=== PATIENT | female | born 1945 | race Asian ===

== ENCOUNTER 2017-05-28 15:00 | Outpatient (CLI) | payer MEDICARE, OTHER ==
[2017-05-28] MEDS ORDERED: ETHYL CHLORIDE SPRAY 1 EA BOTTLE TP ONE (15:30)
== END 2017-05-28 23:59 | disposition home or self-care (01) ==
DX: L82.1 Other seborrheic keratosis (principal); D22.72 Melanocytic nevi of left lower limb, including hip; R25.2 Cramp and spasm; Z83.3 Family history of diabetes mellitus
CPT/HCPCS: 11401; 88305 ×2; A6209 ×2; A6402; J3490

== ENCOUNTER 2017-06-18 15:40 | Outpatient (CLI) | payer MEDICARE, OTHER | END 2017-06-18 23:59 | disposition home or self-care (01) | LOC: WOU 15:40 | PROVIDERS: ATTEND Surgery | DX: Z48.817 Encounter for surgical aftercare following surgery on the skin and subcutaneous tissue (principal); D22.72 Melanocytic nevi of left lower limb, including hip; D22.71 Melanocytic nevi of right lower limb, including hip; R25.2 Cramp and spasm | CPT/HCPCS: A6402; G0463 ==

== ENCOUNTER 2017-06-25 15:50 | Outpatient (CLI) | payer MEDICARE, OTHER ==
[2017-06-25] MEDS ORDERED: ETHYL CHLORIDE SPRAY 1 EA BOTTLE TP ONE (16:00)
== END 2017-06-25 23:59 | disposition home or self-care (01) ==
LOC: WOU 15:50
PROVIDERS: ATTEND Surgery
PROC: 0HBHXZZ Excision of Right Upper Leg Skin, External Approach (ICD-10-PCS; principal; 2017-06-25)
DX: D22.71 Melanocytic nevi of right lower limb, including hip (principal); L57.0 Actinic keratosis
CPT/HCPCS: 88305-TC; A6209; A6402; J3490

== ENCOUNTER 2017-07-16 13:40 | Outpatient (CLI) | payer MEDICARE, OTHER | END 2017-07-16 23:59 | disposition home or self-care (01) | LOC: WOU 13:40 | PROVIDERS: ATTEND Surgery | DX: Z48.02 Encounter for removal of sutures (principal); R25.2 Cramp and spasm; Z87.891 Personal history of nicotine dependence; Z88.2 Allergy status to sulfonamides | CPT/HCPCS: G0463 ==

== ENCOUNTER 2018-01-28 15:12 | Outpatient (CLI) | payer MEDICARE, OTHER | END 2018-01-28 23:59 | disposition home or self-care (01) | LOC: RAD 15:12 | PROVIDERS: ATTEND Surgery | DX: R05 Cough (principal) | CPT/HCPCS: 71046 ==

== ENCOUNTER 2018-05-14 10:28 | Emergency (ER) | payer OTHER ==
[~2018-05-14] VITALS: Ht 157.5 cm; Wt 49.9 kg
[2018-05-14 10:44] VITALS: BP 147/95
[2018-05-14 11:17] LABS: CALCIUM, SERUM 8.9 mg/dL (8.5-10.1); CARBON DIOXIDE 31 mmol/L (21-32); CHLORIDE 105 mmol/L (98-107); CREATININE 0.9 mg/dL (0.6-1.3); GLUCOSE 116 mg/dL (74-106); POTASSIUM 4.3 mmol/L (3.5-5.1); SODIUM SERUM 139 mmol/L (136-145); UREA NITROGEN, BLOOD 13 mg/dL (7-18)
[2018-05-14 11:24] LABS: ALANINE AMINOTRANSFERASE 37 U/L (12-78); ALBUMIN 3.8 g/dL (3.4-5.0); ALKALINE PHOSPHATASE 76 U/L (46-116); ASPARTATE AMINOTRANSFERASE 28 U/L (15-37); BILIRUBIN,TOTAL 0.5 mg/dL (0.2-1.0); TOTAL PROTEIN, SERUM 7.2 g/dL (6.4-8.2)
== END 2018-05-14 11:06 | disposition home or self-care (01) ==
LOC: ER 10:29
DX: S61.236A Puncture wound without foreign body of right little finger without damage to nail, initial encounter (principal); Z88.2 Allergy status to sulfonamides; W46.0XXA Contact with hypodermic needle, initial encounter; Y93.89 Activity, other specified; Y92.89 Other specified places as the place of occurrence of the external cause; Y99.0 Civilian activity done for income or pay
CPT/HCPCS: 36415; 80053; 86706; 87340; 99284; A4606; Z7610

== ENCOUNTER 2019-01-23 12:00 | Outpatient (CLI) | payer MEDICARE | END 2019-01-23 23:59 | disposition home or self-care (01) | LOC: WOU 12:00 | PROVIDERS: ATTEND Surgery | DX: L03.113 Cellulitis of right upper limb (principal); S61.431A Puncture wound without foreign body of right hand, initial encounter; W60.XXXA Contact with nonvenomous plant thorns and spines and sharp leaves, initial encounter; Y92.89 Other specified places as the place of occurrence of the external cause | CPT/HCPCS: G0463 ==

== ENCOUNTER 2020-11-04 10:33 | Emergency (ER) | payer MEDICARE, OTHER ==
[~2020-11-04] VITALS: Ht 157.5 cm; Wt 52.2 kg
[2020-11-04 10:38] VITALS: BP 117/70
== END 2020-11-04 10:49 | disposition home or self-care (01) ==
LOC: ER 10:35
DX: U07.1 COVID-19 (principal); Z88.2 Allergy status to sulfonamides

== ENCOUNTER 2020-11-09 13:36 | Emergency (ER) | payer OTHER ==
[~2020-11-09] VITALS: Ht 157.5 cm; Wt 54.4 kg
--- NOTE | 2020-11-09 13:36 | NUR ---
PT BIB SON C/O WORSENING GEN WEAKNESS. +COVID. 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 KEPT RESTED AND COMFORTABLE. WILL CONTINUE TO MONITOR.
--- NOTE | 2020-11-09 13:45 | NUR ---
SEEN AND EXAMINED BY .
--- NOTE | 2020-11-09 13:50 | NUR ---
IV LINE ESTABLISHED BLOOD DRAWN AND SENT TO LAB.
[2020-11-09 14:19] LABS: BASOPHILS # (AUTO) 0.1 /CMM (0.0-0.2); EOSINOPHILS % (AUTO) 2.5 % (0.0-6.0); HEMATOCRIT 43 % (33-45); HEMOGLOBIN 14.4 g/dL (11.5-14.8); LYMPHOCYTES # (AUTO) 0.6 /CMM (0.8-4.8); LYMPHOCYTES % (AUTO) 12.1 % (20.0-44.0); MEAN CORPUSCULAR HGB CONC 33 g/dl (31.0-36.0); MEAN CORPUSCULAR VOLUME 90 fL (82-100); MONOCYTES # (AUTO) 0.4 /CMM (0.1-1.30); MONOCYTES % (AUTO) 9.2 % (2.0-12.0); NEUTROPHILS # (AUTO) 3.6 /CMM (1.8-8.9); NEUTROPHILS % (AUTO) 74.2 % (43.0-81.0); PLATELET COUNT (AUTO) 161 /CMM (150-450); RED BLOOD CELL COUNT(AUTO) 4.78 MIL/uL (4.0-5.2); WHITE BLOOD COUNT (AUTO) 4.9 K/uL (4.3-11.0)
[2020-11-09 14:28] LABS: CALCIUM, SERUM 8.4 mg/dL (8.5-10.1); CARBON DIOXIDE 31 mmol/L (21-32); CHLORIDE 102 mmol/L (98-107); CREATININE 1.1 mg/dL (0.6-1.3); GLUCOSE 127 mg/dL (74-106); POTASSIUM 3.7 mmol/L (3.5-5.1); SODIUM SERUM 140 mmol/L (136-145); UREA NITROGEN, BLOOD 23 mg/dL (7-18)
[2020-11-09 14:41] LABS: ALANINE AMINOTRANSFERASE 42 U/L (12-78); ALBUMIN 3.4 g/dL (3.4-5.0); ALKALINE PHOSPHATASE 70 U/L (46-116); ASPARTATE AMINOTRANSFERASE 55 U/L (15-37); B-TYPE NATRIURETIC PEPTIDE 25 PG/ML (0-125); BILIRUBIN,TOTAL 0.6 mg/dL (0.2-1.0); TOTAL PROTEIN, SERUM 7.6 g/dL (6.4-8.2)
[2020-11-09 14:56] LABS: D-DIMER 0.36 mg/L(FEU (0.17-0.50)
--- NOTE | 2020-11-09 14:57 | NUR ---
LAB CALLED [facility]ACT[facility] 2.0 MD MADE AWARE.
[2020-11-09 15:05] LABS: C-REACTIVE PROTEIN 1.2 mg/dL (0.0-0.9); CREATINE KINASE, TOTAL 82 U/L (26-192); FERRITIN 2177 ng/mL (8-388)
[2020-11-09] MEDS ORDERED: AZIT250T PO (15:06)
[2020-11-09] MEDS ORDERED: IV NS 0.9% 1,000 ML BAG IV ONE (15:30)
--- NOTE | 2020-11-09 16:21 | NUR ---
Patient discharged to home in stable condition. Written and verbal after care instructions given. Patient verbalizes understanding of instruction.IV removed. Catheter intact and site benign. Pressure and 4x4 applied to site. No bleeding noted.
[2020-11-09 16:22] VITALS: BP 133/76
== END 2020-11-09 16:26 | disposition home or self-care (01) ==
LOC: ER 13:36
DX: U07.1 COVID-19 (principal); E86.0 Dehydration; Z88.2 Allergy status to sulfonamides
CPT/HCPCS: 36415; 71045; 80053; 82550; 82728; 83605; 83615; 83880; 84145; 84484; 85025; 85378; 85730; 86140; 87040 ×2; 93005; 96360; 99285; J7030